=== PATIENT | male | born 1985 | race Caucasian/White ===

== ENCOUNTER 2021-08-22 10:53 | Emergency (ER) | payer BC, SELFPAY ==
[2021-08-22 10:56] VITALS: BP 134/90; PULSE 74; RESP 12; TEMP 36.4; O2SAT 98; BMI 27.2
[2021-08-22 10:59] VITALS: BP 134/90; PULSE 74; RESP 12; TEMP 36.4; O2SAT 98
--- NOTE | 2021-08-22 11:10 | EKG12_ITS ---
Test Reason : CHEST PAIN Blood Pressure : / mmHG Vent. Rate : 072 BPM Atrial Rate : 072 BPM P-R Int : 146 ms QRS Dur : 088 ms QT Int : 398 ms P-R-T Axes : 062 031 016 degrees QTc Int : 435 ms Normal sinus rhythm Normal ECG Confirmed by GURJIT SULLIVAN, RAOUL ([id number]), department editor JAEDN MAI ([id number]) on 08/25/2021 10:47:41 AM Referred By: ELSIE Confirmed By:RAOUL CAGLE MD
--- NOTE | 2021-08-22 11:10 | NURSING ---
NO OLD EKGS
[2021-08-22 11:11] VITALS: O2SAT 97
[2021-08-22 11:21] LABS: Absolute Lymphocyte Count 2.71 X10^3/uL (0.83-4.51); Absolute Neutrophil Count 4.1 X10^3/uL (2.0-7.7); Basophil# 0.07 X10^3/uL; Basophil% 0.8 % (0-1); Eosinophil# 0.61 X10^3/uL; Eosinophils% 7.4 % (0-5); Hematocrit 46.8 % (40-54); Hemoglobin 16.3 g/dL (13.0-16.5); Lymphocyte # 2.71 X10^3/ul (0.83-4.51); Lymphocyte % 32.8 % (19-41); Mean Corp Hgb Conc 34.8 g/dL (32-36); Mean Corpuscular Hgb 30.4 pg (27.0-32.0); Mean Corpuscular Volume 87.2 fL (80-94); Mean Platelet Vol. 10.9 fl (6.2-12.0); Monocyte# 0.79 X10^3/uL; Monocyte% 9.6 % (0-10); NRBC Flagged by Analyzer 0 % (0-5); Neutrophil # 4.07 X10^3/uL (2.7-7.7); Neutrophil % 49.3 % (47-70); Platelet Count 250 K/mm3 (150-450); RBC Distribution Width CV 13.2 % (11.6-14.6); Red Blood Count 5.37 M/mm3 (4.6-6.2); White Blood Count 8.3 K/mm3 (4.4-11.0)
--- NOTE | 2021-08-22 11:24 | RAD_ITS ---
STUDY: X-RAY CHEST REASON FOR EXAM: Male, 36 years old. Chest pain TECHNIQUE: Single AP portable view of the chest. COMPARISON: None. FINDINGS: EKG electrodes are seen. The lungs are clear and expanded. There is no demonstrated pleural abnormality. Normal size heart. Normal mediastinum and harrison. Normal visualized pulmonary arteries. Normal visualized aortic arch and descending thoracic aorta. Normal visualized thoracic spine. Normal visualized ribs, clavicles, and shoulders. There is no demonstrated abnormality of the visualized soft tissue structures of the upper abdomen. RAD/Chest 1 View (Portable) IMPRESSION: Normal x-ray examination of the chest. Electronically Signed: Christoph Henry MD at 11:40 EST ,
[2021-08-22 11:38] LABS: Anion Gap 9 (5-15); BUN 12 mg/dL (7-18); BUN/Creat Ratio 10.2 RATIO (10-20); Calcium,Total 9.3 mg/dL (8.5-10.1); Chloride 105 mmol/L (98-107); Creatinine, Serum 1.18 mg/dL (0.70-1.30); EST Glomerular Filtration Rate 74 mL/min (>60); Est Glom Filt Rate - Afr Amer 89 mL/min (>60); Estimated Creatinine Clearance 108.02 ml/min; Glucose 82 mg/dL (74-106); Sodium Level 139 mmol/L (136-145); Troponin-I HS 3 pg/mL (3.0-78.0)
--- NOTE | 2021-08-22 11:39 | EDS_ITS ---
HPI History of Present Illness Chief Complaint: Chest Pain Narrative Narrative: Patient with past medical history of elevated blood pressure for which she does not take medication, and GERD, presents with pleuritic chest pain on the left side that has had for the last few weeks. However, today when he was at work, it became unbearable and he became lightheaded and dizzy, and had more chest pain. He states he became sweaty but denies any nausea or vomiting. No shortness of breath. Pain is worsened with deep breathing and somewhat relieved or is more tolerable at rest. He denies any leg swelling. No family history of heart attacks less than age 55. He was supposed to go see a primary care physician today for his blood pressure problems as he states they have been running in the 150s systolically. This happened to him at work, and they decided to call EMS to bring him in for evaluation. [facility] Medical History Anxiety GERD (gastroesophageal reflux disease) Home Medications Prilosec 08/22/21 [History Last Taken Unknown] Allergy/AdvReac Type Severity Reaction Status Date / Time azithromycin Allergy Shortness Verified 08/22/21 10:54 [From Zithromax Z-Anthony] of breath Surgical History History of appendectomy Social History Smoking Status: Never smoker ROS ROS ED ROS Narrative Constitutional: No fever, no chills. HEENT: No sore throat. No neck pain. No loss of vision. No rhinorrhea. Cardiovascular: Left-sided pleuritic chest pain. No palpitations. No pedal edema. Respiratory: No cough, no shortness of breath. Left-sided pleuritic chest pain worse with deep inspiration Abdominal: No abdominal pain. No nausea. No vomiting. Genitourinary: No dysuria. No hematuria. Musculoskeletal: No myalgias. No arthralgias. Neurologic: No headaches. No dizziness. No lightheadedness. Skin: No rash. No change in color. Psychiatric: No depression. No anxiety. EXAM Physical Exam Narrative Exam Narrative: Afebrile. Vital signs noted. HEENT: Normocephalic. Atraumatic. PERRL, EOMI. Neck soft and supple. No point tenderness or step off. Cardiovascular: Regular rate and rhythm. No murmurs, rubs, or gallops appreciated. Respiratory: No tachypnea. Lungs clear to auscultation bilaterally. Gastrointestinal: Abdomen soft, nontender, with normoactive bowel sounds. No rebound or guarding. Neurological: Awake. Alert. Nonfocal, nonlateralizing. Skin: No rash. Normal color. No pallor. Musculoskeletal: No pedal edema. Full range of motion extremities. Const Vital Signs: 08/22/21 10:56 08/22/21 10:59 08/22/21 11:11 Temperature 97.6 F L 97.6 F L Temperature Source Oral Oral Pulse Rate 74 74 Respiratory Rate 12 12 Respiratory Effort Normal Non-Labored Blood Pressure 134/90 H 134/90 H Blood Pressure Mean 104 104 Pulse Ox 98 98 97 Oxygen Delivery Method Room Air Room Air Room Air 08/22/21 12:41 08/22/21 13:10 Temperature Temperature Source Pulse Rate 69 72 Respiratory Rate 11 L 17 Respiratory Effort Blood Pressure 133/90 H 129/92 H Blood Pressure Mean 104 104 Pulse Ox 98 98 Oxygen Delivery Method Room Air Room Air Heart Score History: Slightly/Non-Suspicious ECG: Normal Age: </= 45 years Risk Factors: 1 or 2 Risk Factors Troponin: </= Normal Limit Score: 1 MDM MDM MDM Narrative Medical decision making narrative: Essentially, the patient is PERC negative, but I will add a D-dimer to the chest pain protocol orders that were entered by the RN. His normal CBC, normal basic metabolic panel. Initial high-sensitivity troponin is negative at 3. D-dimer is negative at less than 0.27. Chest x-ray shows no acute process. Second high-sensitivity troponin is normal at 4. After aspirin, patient feels mildly improved. His blood pressure has improved to 129/92. He will follow up with his primary care physician regarding his blood pressure to see if medication should be started. I feel he can be discharged safely home with follow-up. Return instructions to the emergency department were reviewed. Disposition is discharged home in stable condition. Lab Data Attestation: I reviewed the patient's lab results. Labs: Laboratory Results - last 24 hr 08/22/21 08/22/21 08/22/21 10:17 10:17 10:17 WBC 8.3 RBC 5.37 Hgb 16.3 Hct 46.8 MCV 87.2 MCH 30.4 MCHC 34.8 RDW Std Deviation 42.0 RDW Coeff of Monique 13.2 Plt Count 250 MPV 10.9 Immature Gran % (Auto) 0.100 Neut % (Auto) 49.3 Lymph % (Auto) 32.8 Hyde % (Auto) 9.6 Eos % (Auto) 7.4 H Baso % (Auto) 0.8 Absolute Neuts (auto) 4.1 Absolute Lymphs (auto) 2.71 Nucleated RBC % 0 D-Dimer Quant (PE/DVT) <= 0.27 Sodium 139 Potassium 4.0 Chloride 105 Carbon Dioxide 25.0 Anion Gap 9 BUN 12 Creatinine 1.18 Estim Creat Clear Calc 108.02 Est GFR (MDRD) Af Amer 89 Est GFR (MDRD) Non-Af 74 BUN/Creatinine Ratio 10.2 Glucose 82 Calcium 9.3 Troponin I High Sens 3 08/22/21 12:37 WBC RBC Hgb Hct MCV MCH MCHC RDW Std Deviation RDW Coeff of Monique Plt Count MPV Immature Gran % (Auto) Neut % (Auto) Lymph % (Auto) Hyde % (Auto) Eos % (Auto) Baso % (Auto) Absolute Neuts (auto) Absolute Lymphs (auto) Nucleated RBC % D-Dimer Quant (PE/DVT) Sodium Potassium Chloride Carbon Dioxide Anion Gap BUN Creatinine Estim Creat Clear Calc Est GFR (MDRD) Af Amer Est GFR (MDRD) Non-Af BUN/Creatinine Ratio Glucose Calcium Troponin I High Sens 4 Radiography Diagnostic Testing: Clinical Impression(s) from Imaging Studies Chest X-Ray 08/22/21 11:24 IMPRESSION: Normal x-ray examination of the chest. Electronically Signed: Christoph Henry MD at 11:40 EST , Discharge Plan Triage Chief Complaint: Chest Pain ED Provider: Leno Quinones Dx/Rx/DC Orders Clinical Impression: Pleuritic chest pain, Blood pressure elevated without history of HTN Instructions: ED Chest Pain, Uncertain Cause, ED Hypertension, To Be Confirmed Prescriptions: No Action Prilosec RF: 0 Primary Care Provider: Amanda Martinez Referrals: Tam Goncalves MD [STAFF PHYSICIAN] - As soon as possible (as needed, or your primary care physician) Amanda Martinez PA [Primary Care Provider] - Disposition Disposition: Home, Self Care
[2021-08-22] MEDS: Aspirin 81 MG TAB.CHEW 324 MG PO (11:55)
[2021-08-22 12:03] LABS: D-Dimer Quantitative (DVT/PE) <= 0.27 FEU/ug/m (0.27-0.49)
[2021-08-22 12:41] VITALS: BP 133/90; PULSE 69; RESP 11; O2SAT 98
[2021-08-22 13:06] LABS: Troponin-I HS 4 pg/mL (3.0-78.0)
[2021-08-22 13:10] VITALS: BP 129/92; PULSE 72; RESP 17; O2SAT 98
[2021-08-22 13:26] VITALS: BP 139/90; PULSE 68; RESP 15; O2SAT 98
== END 2021-08-22 13:31 | disposition home or self-care (01) ==
PROVIDERS: Emergency Provider Emergency Medicine; PCP Physician Assistant; Visit Provider Emergency Medicine
DX: R09.1 Pleurisy (principal); R03.0 Elevated blood-pressure reading, without diagnosis of hypertension
CPT/HCPCS: 71045; 80048; 84484; 85025; 85379; 93005; 99285